=== PATIENT | female | born 1980 | race Caucasian/White ===

== ENCOUNTER → 2016-12-10 | Outpatient (CLI) | payer MEDICAID, OTHER ==
--- NOTE | 2016-12-11 05:13 | WWHP ---
DATE OF SERVICE: 12/10/2016 CHIEF COMPLAINT: The patient is here for her routine gynecologic exam. HPI: This is a 36-year-old, G2, P2 with an LMP of 11/17/2016. She is status post tubal sterilization. She states it has been about 3 years since her last pelvic exam. Her periods are regular about every 8 weeks and this has been at this frequency since age 12. She states her periods typically last about 2 days. She is without gynecologic complaints. PAST MEDICAL HISTORY: Depression. MEDICATIONS: 1. Adipex 37.5 mg daily. 2. Wellbutrin 150 mg daily. ALLERGIES: No known drug allergies. PAST SURGICAL HISTORY: section, laparoscopic tubal sterilization, cholecystectomy and umbilical hernia repair. PAST OB HISTORY: One vaginal delivery followed by section. 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 Menses are regular every 8 weeks, lasting 2 days. She has no history of STDs. SOCIAL HISTORY: She denies tobacco and drug use and typically has about 2 alcoholic drinks per year. She is single. She has been with her boyfriend for about 5 years and lives with him. 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 FAMILY HISTORY: She has 2 aunts who have breast cancer. Father has hypertension, diabetes, CVA, and coronary artery disease. REVIEW OF SYSTEMS: She has lost about 30 pounds through medical weight loss and with the use of Adipex over the past 2 months. She denies respiratory, cardiac, or GI problems. PHYSICAL EXAM: Blood pressure 120/69. Height 5 feet 2 inches. Weight 190 pounds. Temperature 96.9, pulse 75. This a well-developed, heavyset white female who is alert and oriented x3 in no acute distress. HEENT is within normal limits. NECK: Supple without mass or thyromegaly. CHEST AND LUNGS: Clear to auscultation. HEART: Regular rate and rhythm. Breasts are without mass or discharge. Axillary exam is negative for adenopathy. BACK: Negative for CVA tenderness. ABDOMEN: Soft, nontender, without palpable masses. PELVIC EXAM: Normal external genitalia. Cervix and vagina appear normal. There is no unusual discharge. The uterus is midposition, multiparous, nongravid size and nontender. There are no palpable adnexal masses or tenderness. Rectal exam is negative for mass or tenderness. EXTREMITIES: Nontender. IMPRESSION: 1. A 36-year-old female with normal gynecologic exam who is status post tubal sterilization. 2. Long history of menstrual frequency of 2 months and this is regular for her. I do not see this is a problem as long as it is regular at least every 2 months. 3. Family history of breast cancer in 2 aunts. PLAN: 1. Pap smear was performed. 2. Self breast examination was discussed. 3. Baseline screening mammogram was recommended because of her strong family history of breast cancer. A slip was given to patient for this. 4. Osteoporosis prevention was discussed. 5. She will return in one year.
== END | disposition home or self-care (01) ==
LOC: WWCWWP 15:52
PROVIDERS: ATTEND Obstetrics & Gynecology

== ENCOUNTER → 2017-01-03 | Outpatient (CLI) | payer MEDICAID, OTHER ==
--- NOTE | 2017-01-06 08:33 | MM ---
Reason for exam: screening (asymptomatic). Baseline mammogram. History: Family history of breast cancer in 2 maternal aunts at age 40. Took hormonal contraceptives for 2 years. Physical Findings: Nurse did not find any significant physical abnormalities on exam. MG 3D Screening Mammo W/Cad Bilateral CC and MLO view(s) were taken. The breast tissue is heterogeneously dense. This may lower the sensitivity of mammography. Finding: There is a 5 mm circumscribed round mass in the upper outer quadrant of the left breast and a 8 mm circumscribed round mass in the upper outer quadrant of the right breast. These results were verbally communicated with the patient and result sheet given to the patient on 01/03/17. ASSESSMENT: Incomplete: need additional imaging evaluation, BI-RAD 0 RECOMMENDATION: Ultrasound of both breasts.
--- NOTE | 2017-01-06 08:37 | USB ---
Reason for exam: additional evaluation requested from abnormal screening. History: Family history of breast cancer in 2 maternal aunts at age 40. Took hormonal contraceptives for 2 years. US Breast Workup Limited HODAN Right breast ultrasound demonstrates a 9 x 2 x 7mm oval, cystic lesion at 9 o'clock, a 6 x 6 x 9mm lobular, mixed lesion at 10 o'clock likely septated cyst and a 12 x 6 x 10mm lobular, mixed lesion at 12 o'clock likely at septated cyst. Left breast ultrasound demonstrates a 6 x 3 x 7mm oval, cystic lesion at 1 o'clock and a 10 x 3 x 13mm lobular, mixed lesion at 1 o'clock, likely septated cyst. Multiple benign axillary lymph nodes. These results were verbally communicated with the patient and result sheet given to the patient on 01/03/17. ASSESSMENT: Probably benign, BI-RAD 3 RECOMMENDATION: Ultrasound of both breasts in 6 months.
== END | disposition home or self-care (01) ==
LOC: RADMAMWWP 15:42
PROVIDERS: ATTEND Obstetrics & Gynecology
DX: Z12.31 Encounter for screening mammogram for malignant neoplasm of breast (principal); R92.8 Other abnormal and inconclusive findings on diagnostic imaging of breast
CPT/HCPCS: 77063; 76642; G0202

== ENCOUNTER → 2017-07-15 | Outpatient (CLI) | payer MEDICAID, OTHER ==
--- NOTE | 2017-07-16 09:06 | USB ---
Reason for exam: follow-up at short interval from prior study. History: Family history of breast cancer in 2 maternal aunts at age 40. Took hormonal contraceptives for 2 years. Physical Findings: Nurse Summary: 0.5cm movable, cystic clusters in the right breast at 12 o'clock and in the left breast at 11 o'clock (nurse mj). US Breast BILAT Right breast ultrasound includes all four quadrants, the retroareolar region and axilla. Finding demonstrates a 1.0 x 0.6 x 0.9cm lobular, mixed lesion at 12 o'clock, a 0.7 x 0.4 x 0.7cm oval, cystic lesion at 6 o'clock and a 0.6 x 0.3 x 0.7cm oval, cystic lesion at 9 o'clock. Left breast ultrasound includes all four quadrants, the retroareolar region and axilla. Finding demonstrates a 0.8 x 0.5 x 1.0cm lobular, mixed lesion at 2 o'clock, a 0.7 x 0.3 x 0.7cm oval, cystic lesion at 4 o'clock and a 0.6 x 0.3 x 0.5cm oval, mixed lesion at 11 o'clock. These results were verbally communicated with the patient and result sheet given to the patient on 07/16/17. ASSESSMENT: Benign, BI-RAD 2 RECOMMENDATION: Follow-up diagnostic mammogram and ultrasound of both breasts in 6 months.
== END | disposition home or self-care (01) ==
LOC: RADUSWWP 13:53
PROVIDERS: ATTEND Obstetrics & Gynecology
DX: R92.8 Other abnormal and inconclusive findings on diagnostic imaging of breast (principal)

== ENCOUNTER → 2018-01-16 | Outpatient (CLI) | payer MEDICAID ==
[2018-01-16 16:43] LABS: Basophils # (A) 0.1 k/uL (0-0.2); Basophils % (A) 1 %; Eosinophils # (A) 0.3 k/uL (0-0.7); Eosinophils % (A) 3 %; HCT 42.3 % (34.0-46.0); Lymphocytes # (A) 2.8 k/uL (1.0-4.8); Lymphocytes % (A) 30 %; MCH 27.6 pg (25.0-35.0); MCHC 33.1 g/dL (31.0-37.0); MCV 83.5 fL (80.0-100.0); Mean Platelet Volume 7.4; Monocytes # (A) 0.5 k/uL (0-1.0); Monocytes % (A) 5 %; Neutrophils # (A) 5.6 k/uL (1.3-7.7); Neutrophils % (A) 60 %; Platelet Count 348 k/uL (150-450); RBC 5.06 m/uL (3.80-5.40); RDW 12.7 % (11.5-15.5); WBC 9.3 k/uL (3.8-10.6)
[2018-01-16 17:01] LABS: ALT 38 U/L (9-52); AST 26 U/L (14-36); Albumin 4.4 g/dL (3.5-5.0); Alkaline Phosphatase 93 U/L (38-126); Anion Gap 12 mmol/L; Blood Urea Nitrogen 18 mg/dL (7-17); Carbon Dioxide 27 mmol/L (22-30); Chloride 103 mmol/L (98-107); Cholesterol 222 mg/dL (<200); Glucose 81 mg/dL (74-99); HDL Cholesterol 51 mg/dL (40-60); LDL Cholesterol,Calculated 158 mg/dL (0-99); Potassium 4.1 mmol/L (3.5-5.1); Sodium 142 mmol/L (137-145); Total Bilirubin 0.8 mg/dL (0.2-1.3); Total Protein 7.7 g/dL (6.3-8.2); Triglycerides 67 mg/dL (<150)
[2018-01-17 00:26] LABS: Thyroid Peroxidase Antibodies 41.6 U/mL (0.0-60.0); Vitamin D 25 Hydroxy 19.1 ng/mL (30.0-100.0)
[2018-01-17 01:05] LABS: Folate, Serum >24.0 ng/mL
== END | disposition home or self-care (01) ==
LOC: LABWHC1 16:12
PROVIDERS: ATTEND Family Medicine
DX: Z00.01 Encounter for general adult medical examination with abnormal findings (principal); E66.9 Obesity, unspecified; E55.9 Vitamin D deficiency, unspecified; R61 Generalized hyperhidrosis; Z68.41 Body mass index [BMI] 40.0-44.9, adult
CPT/HCPCS: 36415; 80053; 80061; 82306; 82607; 82746; 84443; 85025; 86376; 86800

== ENCOUNTER → 2018-01-27 | Outpatient (CLI) | payer MEDICAID ==
--- NOTE | 2018-01-28 08:36 | MM ---
Reason for exam: follow-up at short interval from prior study. Last mammogram was performed 1 year and 1 month ago. History: Family history of breast cancer in 2 maternal aunts at age 40. Took hormonal contraceptives for 2 years. Physical Findings: Nurse Summary: 1cm nodule in the right breast at 12 o'clock and in the left breast at 11 o'clock (nurse mj). MG 3D Diag Mammo W/Cad HODAN Bilateral CC and MLO view(s) were taken. Prior study comparison: January 03, 2017, bilateral MG 3d screening mammo w/cad. The breast tissue is heterogeneously dense. This may lower the sensitivity of mammography. Nodularity bilaterally increased and decreased in size. There is no discrete abnormality. Prominent bilateral axillary lymph nodes redemonstrated. These results were verbally communicated with the patient and result sheet given to the patient on 01/27/18. ASSESSMENT: Incomplete: need additional imaging evaluation, BI-RAD 0 RECOMMENDATION: Ultrasound of both breasts. (palpable and changing nodularity)
--- NOTE | 2018-01-28 08:42 | USB ---
Reason for exam: additional evaluation requested from abnormal screening. History: Family history of breast cancer in 2 maternal aunts at age 40. Took hormonal contraceptives for 2 years. US Breast BILAT Right breast ultrasound includes all four quadrants, the retroareolar region and axilla. Finding demonstrates a 1.2 x 0.5 x 1.0cm lobular, mixed, stable, vascular lesion at 12 o'clock, a 0.8 x 0.3 x 0.6cm mixed lesion at 3 o'clock, a 0.5 x 0.3 x 0.6cm cystic lesion at 6 o'clock and a 1.3 x 0.4 x 0.7cm mixed lesion at 9 o'clock, septated cyst. Left breast ultrasound includes all four quadrants, the retroareolar region and axilla. Finding demonstrates a 0.8 x 0.4 x 0.9cm lobular, mixed lesion at 2 o'clock, septated cyst, a 0.8 x 0.4 x 0.8cm mixed lesion at 4 o'clock and a 0.5 x 0.2 x 0.4cm mixed lesion too small to characterize at 11 o'clock. Bilateral fibrocystic change. These results were verbally communicated with the patient and result sheet given to the patient on 01/27/18. ASSESSMENT: Benign, BI-RAD 2 RECOMMENDATION: Follow-up diagnostic mammogram of both breasts in 1 year.
== END | disposition home or self-care (01) ==
LOC: RADMAMWWP 14:11
PROVIDERS: ATTEND Family Medicine
DX: N63.10 Unspecified lump in the right breast, unspecified quadrant (principal); N63.20 Unspecified lump in the left breast, unspecified quadrant; R92.8 Other abnormal and inconclusive findings on diagnostic imaging of breast
CPT/HCPCS: 77066; 76641; G0279

== ENCOUNTER → 2019-03-30 | Outpatient (CLI) | payer MEDICAID, OTHER ==
--- NOTE | 2019-03-31 07:48 | MM ---
Reason for exam: additional evaluation requested from prior study. Last mammogram was performed 1 year and 2 months ago. History: Family history of breast cancer in 2 maternal aunts at age 40. Took hormonal contraceptives for 2 years. Physical Findings: Nurse did not find any significant physical abnormalities on exam. MG 3D Diag Mammo W/Cad HODAN Bilateral CC and MLO view(s) were taken. Prior study comparison: January 27, 2018, bilateral MG 3d diag mammo w/cad HODAN. January 03, 2017, bilateral MG 3d screening mammo w/cad. The breast tissue is heterogeneously dense. This may lower the sensitivity of mammography. There is chronic nodularity bilaterally. Bilateral, greater in the left breast, prominent lymph node's axilla not significantly changed from 01/03/17. These results were verbally communicated with the patient and result sheet given to the patient on 03/30/19. ASSESSMENT: Benign, BI-RAD 2 RECOMMENDATION: Routine screening mammogram of both breasts in 1 year.
== END | disposition home or self-care (01) ==
LOC: RADMAMWWP 15:28
PROVIDERS: ATTEND Family Medicine
DX: R92.8 Other abnormal and inconclusive findings on diagnostic imaging of breast (principal)
CPT/HCPCS: 77062; 77066

== ENCOUNTER → 2020-06-27 | Outpatient (CLI) | payer MEDICAID, OTHER ==
[2020-06-27 14:14] VITALS: BP 116/80; PULSE 65; RESP 18; TEMP 98.1
--- NOTE | 2020-06-27 14:56 | P.HPOB ---
History of Present Illness H&P Date: 06/27/20 Chief Complaint: The patient is here for her routine gynecologic exam and ma mmogram. This is a 40-year-old with an LMP of 06/23/2020. The patient is status post tubal sterilization. She states her menses have been slightly more irregular about every 4-6 months. They have gotten heavier during the first 2 days when she has to change her protection up to every 2 hours. She is otherwise without complaints. Review of Systems Weight has been stable over the past 3 years. She denies respiratory, cardiac, or GI problems. 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 History of Any Multi-Drug Resistant Organisms: None Reported Past Surgical History: Section, Cholecystectomy, Hernia Repair, Tubal Ligation Additional Past Surgical History / Comment(s): Umbilical hernia repair. One section after previous vaginal delivery. Past Psychological History: Depression Smoking Status: Never smoker Past Alcohol Use History: Rare (3 per year) Past Drug Use History: None Reported Additional History: She is single and has been with her boyfriend since 2011 and lives with him. She works at [employer] in the [employer] department. - Past Family History Father Family Medical History: Coronary Artery Disease (CAD), CVA/TIA, Diabetes Mellitus, Hypertension Aunts Family Medical History: Cancer Additional Family Medical History / Comment(s): 2 aunts had breast cancer. Medications and Allergies Home Medications Medication Instructions Recorded Confirmed Type buPROPion [Wellbutrin] 300 mg PO QAM 06/27/20 06/27/20 History Allergies Allergy/AdvReac Type Severity Reaction Status Date / Time No Known Allergies Allergy Unverified 06/27/20 14:08 Exam Vital Signs Temp Pulse Resp BP Pulse Ox 06/27/20 14:09 98.1 F 65 18 116/80 98 Intake and Output 06/26/20 06/27/20 06/27/20 22:59 06:59 14:59 Other: Weight 85.275 kg Height 5 feet 3 inches, weight 188 pounds, BMI 33.3. This is a well-developed well-nourished white female who is alert and oriented times 3 in no acute distress. HEENT: Within normal limits. NECK: Supple without mass or thyromegaly. CHEST AND LUNGS: Clear to auscultation. HEART: Regular rate and rhythm. BREASTS: Are without mass or discharge. AXILLARY EXAM: Negative for adenopathy. BACK: Negative for CVA tenderness. ABDOMEN: Soft, nontender, without palpable masses. PELVIC EXAM: Normal external genitalia. Cervix and vagina appear normal. There is no unusual discharge. There is no evidence of prolapse. The uterus is anterior, 8-10 weeks size and nontender. There are no palpable adnexal masses or tenderness. RECTAL EXAM: negative for mass or tenderness and is negative for occult blood. EXTREMITIES: Nontender. IMPRESSION: 1. 40-year-old female who is status post tubal sterilization with mild menorrhagia and mildly enlarged uterus. Differential diagnosis will include uterine fibroids and menorrhagia not related to fibroids. PLAN: 1. Pap smear was performed. 2. Self breast awareness was discussed with the patient. 3. Screening mammogram was done today. 4. Trial of meclofenamate sodium 100 mg by mouth 3 times a day when necessary for heavy menstrual flow up to 6 days per cycle. She will keep a menstrual calendar. The electronic prescription will be sent to [facility] pharmacy. 5. If she does not notice much improvement with her menorrhagia, she was instructed to call in approximately 3 months. If this is the case, we will consider pelvic ultrasound and possible referral for endometrial ablation. 6. She was advised to return in one year for her annual well woman exam and as needed.
--- NOTE | 2020-06-29 14:13 | MM ---
Reason for exam: screening (asymptomatic). Last mammogram was performed 1 year and 3 months ago. History: Family history of breast cancer in 2 maternal aunts at age 40. Took hormonal contraceptives for 2 years. Physical Findings: A clinical breast exam by your physician is recommended on an annual basis and results should be correlated with mammographic findings. MG 3D Screening Mammo W/Cad Bilateral CC and MLO view(s) were taken. Prior study comparison: March 30, 2019, bilateral MG 3d diag mammo w/cad HODAN. January 27, 2018, bilateral MG 3d diag mammo w/cad HODAN. The breast tissue is heterogeneously dense. This may lower the sensitivity of mammography. There is chronic nodularity bilaterally. No significant changes when compared with prior studies. ASSESSMENT: Benign, BI-RAD 2 RECOMMENDATION: Routine screening mammogram of both breasts in 1 year.
== END | disposition home or self-care (01) ==
LOC: WWCWWP 13:50
PROVIDERS: ATTEND Obstetrics & Gynecology
DX: Z12.31 Encounter for screening mammogram for malignant neoplasm of breast (principal)
CPT/HCPCS: 77063; 77067

== ENCOUNTER → 2021-02-27 | Outpatient (CLI) | payer MEDICAID, OTHER ==
[2021-02-27 16:09] VITALS: BP 116/81; PULSE 73; RESP 16; TEMP 98.3
--- NOTE | 2021-02-27 16:50 | P.PN ---
Progress Note - Text Progress Note Date: 02/27/21 Chief Complaint: Menstrually related pelvic fullness and heavy flow HPI: This is a 40-year-old with an LMP of 02/02/2021. The patient was seen on 06/27/2020 for her well woman examination and was treated for heavy menstrual flow with meclofenamate sodium. She states she has been starting the meclofenamate about 4-5 days prior to menstrual flow because of pelvic heaviness neck can also lead to feelings like she needs to void. Typically at those times she would Fort small amounts of urine. Since the meclofenamate is to only be used for 6 days per cycle, she is typically stopping the meclofenamate soon after menstrual flow starts. She has not noticed much difference in her heavy menstrual flow. She is status post tubal ligation. ROS: Some urinary urgency prior to starting a menstrual period, but does not feel like a urinary tract infection. Review of systems is otherwise unremarkable. PE: Blood pressure: 116/81, Height: 5 feet 4 inches, Weight: 200 pounds, Temperature: 98.3, Pulse: 13. Pulse oximeter 99%. This is a well developed, well nourished, white female who is alert and orientedx3, in no acute distress. Impression: 1. 40-year-old female with menorrhagia 2. Menstrually related pelvic heaviness for approximately 4 or 5 days prior to menstrual flow. 3. History of uterine enlargement with the uterus measuring approximately 10 weeks size. Possible uterine fibroids. Plan: 1. We have discussed how she has used the meclofenamate differently than what I had intended. I wanted her to start the meclofenamate around the time of the start of her menstrual flow. Since she was using it for several days before the menstrual flow, she may not have been using it during the heavier part of the menstrual flow as intended. The electronic prescription for meclofenamate 100mg will be sent to [facility] pharmacy. She will she will take this 3 times a day whe n necessary for heavy menstrual flow up to 6 days per cycle and will start this around the time of the onset of menstrual flow. If she needs something for pelvic discomfort prior to the menstrual flow, she was instructed to use [id number] ibuprofen or Aleve as directed. Once she starts the meclofenamate sodium, she was instructed to discontinue the other NSAID type of medication. 2. I recommended a pelvic ultrasound to evaluate the uterus for uterine fibroids. 3. If she is not noticing much improvement with the meclofenamate sodium, we will consider other options. We have discussed options including endometrial ablation and hysterectomy. 4. She will return in approximately 4 months at the time of her annual well woman examination. At that time we will decide whether surgical options would be appropriate. Time spent with the patient: 20 minutes
== END ==
LOC: WWCWWP 15:46
PROVIDERS: ATTEND Obstetrics & Gynecology
DX: N92.0 Excessive and frequent menstruation with regular cycle (principal); Z87.42 Personal history of other diseases of the female genital tract

== ENCOUNTER → 2021-03-29 | Outpatient (CLI) | payer MEDICAID, OTHER ==
--- NOTE | 2021-03-29 14:07 | US ---
EXAMINATION TYPE: US pelvic complete DATE OF EXAM: 03/29/2021 COMPARISON: NONE CLINICAL HISTORY: N92.0 N85.2,R10.2 PELVIC PAIN. TECHNIQUE: . Transabdominal sonographic images of the pelvis were acquired. Transvaginal sonographi c images were medically necessary to better assess the following anatomy: Date of LMP: not given EXAM MEASUREMENTS: Uterus: 12.7 x 8.5 x 7.2 cm Endometrial Stripe: 1.0 cm Right Ovary: 2.6 x 1.5 x 2.0 cm Left Ovary: obscured by overlying bowel gas 1. Uterus: Anteverted, fibroid uterus largest measuring 7.8 x 7.8 x 6.6cm 2. Endometrium: not positively identified due to large fibroid 3. Right Ovary: wnl 4. Left Ovary: not visualized, obscured by overlying bowel gas Spectral, color and waveform doppler imaging shows good arterial and venous flow within the ovaries ; there is no evidence for ovarian torsion. 5. Bilateral Adnexa: wnl 6. Posterior cul-de-sac: wnl IMPRESSION: 1. Uterine masses most likely represent leiomyomata. 2. Left ovary not seen. 3. Endometrium not well visualized.
== END | disposition home or self-care (01) ==
LOC: RADUSWWP 13:05
PROVIDERS: ATTEND Obstetrics & Gynecology
DX: N92.0 Excessive and frequent menstruation with regular cycle (principal); R10.2 Pelvic and perineal pain; N85.2 Hypertrophy of uterus
CPT/HCPCS: 76856

== ENCOUNTER → 2021-08-28 | Outpatient (CLI) | payer MEDICAID, OTHER ==
--- NOTE | 2021-08-28 16:44 | P.HPOB ---
History of Present Illness H&P Date: 08/28/21 Chief Complaint: The patient is here for her routine gynecologic exam and ma mmogram. This is a 41-year-old with an LMP of 08/21/2021. The patient is status post tubal sterilization. Menstrual periods are regular every month lasting about 5 days with 2 days of very heavy flow. During the heavy days, she has to change super tampons about every 30 minutes. She has tried meclofenamate sodium over the past year and she states it does help somewhat with her heavy flow, but she has stomach problems and discomfort when she takes the medication. She try taking the medication with food without much improvement. Pelvic ultrasound done on 03/29/2021 showed a fibroid uterus with the largest fibroid measuring 7.8 cm. She thinks her abdomen has gotten slightly larger she attributed this to weight gain. Her previous Pap smear on 06/27/2020 showed ASCUS with negative high-risk HPV testing. Review of Systems The patient has gained 2 pounds over the last year. She denies respiratory, cardiac, or G.I. problems. 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 History of Any Multi-Drug Resistant Organisms: None Reported Past Surgical History: Section, Cholecystectomy, Hernia Repair, Tubal Ligation Additional Past Surgical History / Comment(s): Umbilical hernia repair. One section after previous vaginal delivery. Past Psychological History: Depression Smoking Status: Never smoker Past Alcohol Use History: Rare (3 per year) Past Drug Use History: None Reported Additional History: She is a single and has been with her boyfriend since 2011 and lives with him. She works at [employer] in the [employer] department. - Past Family History Father Family Medical History: Coronary Artery Disease (CAD), CVA/TIA, Diabetes Mellitus, Hypertension Aunts Family Medical History: Cancer Additional Family Medical History / Comment(s): 2 aunts had breast cancer. maternal grandmother Family Medical History: Cancer Additional Family Medical History / Comment(s): Ovarian cancer. There is no other history of ovarian cancer in her family. Medications and Allergies Home Medications Medication Instructions Recorded Confirmed Type buPROPion [Wellbutrin] 300 mg PO QAM 06/27/20 08/28/21 History Meclofenamate Sodium 100 mg PO TID PRN #30 capsule 02/27/21 08/28/21 Rx Allergies Allergy/AdvReac Type Severity Reaction Status Date / Time No Known Allergies Allergy Unverified 08/28/21 15:22 Exam Blood pressure 111/76, height 5 feet 3 inches, weight 190 pounds, temp 98.1, pulse 66, pulse oximeter 100%. BMI 34. This is a well-developed well-nourished white female who is alert and oriented times 3 in no acute distress. HEENT: Within normal limits. NECK: Supple without mass or thyromegaly. CHEST AND LUNGS: Clear to auscultation. HEART: Regular rate and rhythm. BREASTS: Are without mass or discharge. AXILLARY EXAM: Negative for adenopathy. BACK: Negative for CVA tenderness. ABDOMEN: Soft, nontender, without palpable masses. PELVIC EXAM: Normal external genitalia. Cervix and vagina appear normal. The cervix appears multiparous without lesions. There is no unusual discharge. There is no evidence of prolapse. The uterus is midposition, firm, approximately 12 week size and nontender. There are no palpable adnexal masses or tenderness. RECTAL EXAM: negative for mass or tenderness and is negative for occult blood. EXTREMITIES: Nontender. IMPRESSION: 1. 41-year-old female with a 12 week size fibroid uterus. The uterus seems to be larger than her exam 1 year ago. 2. Menorrhagia probably secondary to the fibroid uterus. GI intolerance to meclofenamate sodium. 3. Previous tubal sterilization. 4. Previous ASCUS Pap smear with negative high-risk HPV testing on 06/27/2020. PLAN: 1. Pap smear was deferred since she had an ASCUS Pap smear with negative high- risk HPV testing on 06/27/2020. The plan was to repeat this again in 1-2 years from now. 2. Self breast awareness was discussed with the patient. We have also discusse d symptoms associated with inflammatory breast cancer. 3. Screening mammogram will be done today. 4. We have had a long discussion regarding options for her heavy menstrual periods. Medical treatment options would include oral contraception, Mirena IUD, Lysteda,and Oriahnn. We have discussed pros and cons of each of these types of medications. We have also discussed surgical approaches including myomectomy and hysterectomy. We've discussed different approaches of hysterectomy including vaginal hysterectomy, laparoscopic assisted hysterectomy and abdominal hysterectomy. We have also discussed possible option of removing ovaries at the time of the hysterectomy or leaving them in. After our long discussion, she would like to look into treatment with hysterectomy. She will be referred to Dr. Steele who she states delivered one of her babies many years ago. 5. The [employer] FAQ handout on hysterectomy was given to the patient. She was p reviously given information on uterine fibroids. 6. She was advised to return in one year for her annual well woman exam.
--- NOTE | 2021-08-30 13:59 | MM ---
Reason for exam: screening (asymptomatic). Last mammogram was performed 1 year and 2 months ago. History: Family history of breast cancer in 2 maternal aunts at age 40. Took hormonal contraceptives for 2 years. Physical Findings: A clinical breast exam by your physician is recommended on an annual basis and results should be correlated with mammographic findings. MG 3D Screening Mammo W/Cad Bilateral CC and MLO view(s) were taken. Prior study comparison: June 27, 2020, bilateral MG 3d screening mammo w/cad. March 30, 2019, bilateral MG 3d diag mammo w/cad HODAN. The breast tissue is heterogeneously dense. This may lower the sensitivity of mammography. There is chronic nodularity in the left breast. No significant changes when compared with prior studies. ASSESSMENT: Benign, BI-RAD 2 RECOMMENDATION: Routine screening mammogram of both breasts in 1 year.
== END ==
LOC: WWCWWP 15:14
PROVIDERS: ATTEND Obstetrics & Gynecology
DX: D25.9 Leiomyoma of uterus, unspecified (principal); N92.0 Excessive and frequent menstruation with regular cycle; F32.9 Major depressive disorder, single episode, unspecified; Z98.51 Tubal ligation status; Z79.899 Other long term (current) drug therapy
CPT/HCPCS: 77063; 77067

== ENCOUNTER → 2021-09-21 | Outpatient (CLI) | payer MEDICAID, OTHER ==
[2021-09-21 19:14] LABS: Basophils # (A) 0.1 k/uL (0-0.2); Basophils % (A) 1 %; Eosinophils # (A) 0.2 k/uL (0-0.7); Eosinophils % (A) 2 %; HCT 44.2 % (34.0-46.0); Lymphocytes # (A) 2.6 k/uL (1.0-4.8); Lymphocytes % (A) 25 %; MCH 28.3 pg (25.0-35.0); MCHC 31.7 g/dL (31.0-37.0); MCV 89.2 fL (80.0-100.0); Mean Platelet Volume 8.8; Monocytes # (A) 0.6 k/uL (0-1.0); Monocytes % (A) 6 %; Neutrophils # (A) 6.9 k/uL (1.3-7.7); Neutrophils % (A) 66 %; Platelet Count 333 k/uL (150-450); RBC 4.96 m/uL (3.80-5.40); RDW 13.7 % (11.5-15.5); WBC 10.5 k/uL (3.8-10.6)
== END | disposition home or self-care (01) ==
LOC: LABPAT 15:54
PROVIDERS: ATTEND Obstetrics & Gynecology
DX: Z01.812 Encounter for preprocedural laboratory examination (principal); D25.9 Leiomyoma of uterus, unspecified
CPT/HCPCS: 80051; 82565; 82947; 84520; 85025; 87086

== ENCOUNTER 2021-10-01 09:05 | Inpatient (IN) | payer MEDICAID, OTHER ==
[2021-09-27 10:24] VITALS: BMI 34.7
[~2021-10-01 09:05] MED LIST: DEXAMETHASONE SOD PHOSPHATE 4 MG/ML 1 ML VIAL IV ONE; MIDAZOLAM 2 MG/2 ML VIAL IV PRN; ONDANSETRON 4 MG/2 ML VIAL IVP ONE
[2021-10-01] MEDS: LACTATED RINGERS 1,000 ML IV SCH (09:56)
[2021-10-01] MEDS ORDERED: SCOPOLAMINE 1.5MG/72HR PATCH TRANSDERM ONE (10:01)
[2021-10-01] MEDS ORDERED: MIDAZOLAM 2 MG/2 ML VIAL IV ONE (10:16)
[2021-10-01] MEDS ORDERED: fentaNYL (PF) 50 MCG/ML 5 ML AMP IV ONE (10:16)
--- NOTE | 2021-10-01 10:31 | P.ANPRN ---
Procedure Note - Anesthesia - Epidural/Spinal Spinal Time Out Performed: Yes Date of Procedure: 10/01/21 Procedure Start Time: :15 Procedure Stop Time: Location of Patient: PreOp Indication: Acute Post-Operative Pain, Requested by Surgeon (dayana) Sedation Type: Sedate with meaningful contact maintained Preparation: Sterile Dressing Number of Attempts: 1 Position: Supine Catheter: None Needle Guage: 25 Narrative: sterile protocol. L4-5 interspace. Fentanyl 25mcg and Duramorph 300mcg. Blood Aspirated: No Pain Paresthesia on Injection Noted: No Events: Uneventful and Well Tolerated
[2021-10-01] MEDS ORDERED: PHENYLEPHRINE-0.9% NACL SYG 1,000 MCG/10 ML SYRINGE ONE (11:01)
[2021-10-01] MEDS ORDERED: SUCCINYLCHOLINE CHLORIDE 100 MG/5 ML SYR IV ONE (11:01)
[2021-10-01] MEDS ORDERED: MIDAZOLAM 2 MG/2 ML VIAL ONE (11:01)
[2021-10-01] MEDS ORDERED: GLYCOPYRROLATE 0.2 MG/ML 2 ML VIAL ONE (11:01)
[2021-10-01] MEDS ORDERED: NEOSTIGMINE 1 MG/ML 10 ML VIAL ONE (11:01)
[2021-10-01] MEDS ORDERED: LIDOCAINE 1% INJ 10MG/ML (20 ML MDV) ONE (11:01)
[2021-10-01] MEDS ORDERED: PROPOFOL 10 MG/ML 20 ML VIAL IV ONE (11:01)
[2021-10-01] MEDS ORDERED: MORPHINE SULFATE (PF) 0.3 MG/0.3 ML SYR ONE (11:01)
[2021-10-01] MEDS ORDERED: fentaNYL (PF) 50 MCG/ML 2 ML AMP ONE (11:01)
[2021-10-01] MEDS ORDERED: ROCURONIUM 10 MG/ML (5 ML VIAL) IV ONE (11:01)
[2021-10-01] MEDS ORDERED: LACTATED RINGERS 1,000 ML IV ONE ×2 (12:05→12:43)
[2021-10-01] MEDS ORDERED: ZOLPIDEM 5 MG TAB PO PRN (12:47)
[2021-10-01] MEDS ORDERED: ONDANSETRON 4 MG/2 ML VIAL IVP PRN (12:47)
[2021-10-01] MEDS ORDERED: SIMETHICONE 80 MG CHEWABLE PO PRN (12:47)
[2021-10-01] MEDS ORDERED: METOCLOPRAMIDE 5 MG/ML 2 ML VIAL IVP PRN (12:47)
[2021-10-01] MEDS ORDERED: KETOROLAC 30 MG/ML 1 ML VIAL IVP PRN (12:47)
--- NOTE | 2021-10-01 12:47 | P.OP ---
Date of Procedure: 10/01/21 Preoperative Diagnosis: Enlarged fibroid uterus, menorrhagia Postoperative Diagnosis: Same, normal-appearing ovaries bilaterally Procedure(s) Performed: Total abdominal hysterectomy Anesthesia: RIC Surgeon: Kady Steele Chief Order Dispatcher #1: Abdi Frausto Estimated Blood Loss (ml): 450 IV fluids (ml): 1,600 Urine output (ml): 150 Pathology: other Disposition: PACU Description of Procedure: Patient is brought to the operating suite after spinal with Duramorph is placed in the preoperative area. She's placed in the dorsal supine position after prepping of the cervix, vagina, abdomen are all performed. Velasco catheter placed to direct drainage. Urine hCG negative. Cover test negative. The appropriate timeout is performed to assure proper patient and procedural identification. Gen. anesthetic has been given. A low transverse skin incision is made through the prior section scar. This is taken down through the subcutaneous tissue which is approximately 8 cm deep. Fascia is isolated, scored, extended bilaterally with curved Ruggiero scissors. Peritoneum is next identified and incised, there is no bowel or bladder involvement. The O'Jesus-O'Mooney retractors placed and at all times the bladder is Well from the operative field via bladder blade. A 3 yard sponge is placed to keep the bowel protected superiorly. The uterus is quite large, with the predominant fibroid filling the posterior cul-de-sac, at least 9-10 cm in diameter. The round ligaments are identified, clamped cut and suture ligated. The infundibulopelvic ligaments are identified, clamped cut and suture ligated through the clear space. Ovaries and tubes are retained in situ. Uterine vasculature is identified, clamped cut and suture ligated. Exposure was quite difficult secondary to the size of the uterus. Bladder flap is created with Metzenbaum scissors and the anterior most fibroid is shelled out to allow bladder mobilization. Cardinal ligaments are identified, clamped cut and suture ligated. Uterosacral ligaments are again identified, clamped cut and suture ligated. Odette clamps are used across the remaining vagina and the specimen is removed and sent to pathology for evaluation. 0 Vicryl sutures used on these pedicles as well, they are tied with Odette clamps, flashed, and retied for excellent hemostasis. At now the pelvis is irrigated, all pedicles are clean and dry. Velasco is noted to be draining clear urine. The causes of the extensive dissection especially in the posterior cul-de-sac surgical's no is placed to assure hemostasis. Peritoneum is allowed to close by secondary intention. Fascia is closed in a running stitch of 0 Vicryl with over ligation in the midline. Subcutaneous tissue is irrigated, clean and dry, reapproximated with 3-0 Vicryl in a running fashion. 4-0 undyed Monocryl is used for final skin closure. Steri-Strips and Mastisol are applied to the wound. Again Velasco is noted to be draining clear urine, 1 50 mL's. Fluid replacement 1600 mL's. Total estimated blood loss 450 mL's. Patient is brought back to recovery room in very good condition with stable vital signs including a pulse of 59, 100% O2 saturation, blood pressure 102/48.
[2021-10-01] MEDS ORDERED: diphenhydrAMINE 50 MG/ML 1 ML VIAL IVP ONE (13:07)
[2021-10-01] MEDS: diphenhydrAMINE 50 MG/ML 1 ML VIAL IVP PRN ×2 (13:22→23:32)
[2021-10-01] MEDS: HYDROmorphone 0.5 MG/0.5 ML SYRINGE IVP PRN ×2 (13:24→13:28)
[2021-10-01] MEDS ORDERED: ONDANSETRON 4 MG/2 ML VIAL IVP ONE (14:00)
[2021-10-01 14:39] VITALS: RESP 16
[2021-10-02 07:53] LABS: Basophils # (A) 0.1 k/uL (0-0.2); Basophils % (A) 0 %; Eosinophils % (A) 0 %; HCT 34.7 % (34.0-46.0); Lymphocytes # (A) 2.3 k/uL (1.0-4.8); Lymphocytes % (A) 14 %; MCH 28.4 pg (25.0-35.0); MCHC 31.8 g/dL (31.0-37.0); MCV 89.4 fL (80.0-100.0); Monocytes # (A) 0.9 k/uL (0-1.0); Monocytes % (A) 6 %; Neutrophils # (A) 13.4 k/uL (1.3-7.7); Neutrophils % (A) 79 %; Platelet Count 296 k/uL (150-450); RBC 3.89 m/uL (3.80-5.40); RDW 13.3 % (11.5-15.5)
[2021-10-02] MEDS: IBUPROFEN 600 MG TAB PO PRN ×2 (07:56→15:27)
--- NOTE | 2021-10-02 08:04 | P.DS ---
Providers Date of admission: 10/01/21 09:05 Expected date of discharge: 10/02/21 Attending physician: Kady Steele Primary care physician: Anil Beltrán [facility] Course: This is a 41-year-old female who presented with an increasingly symptomatic fibroid uterus. Largest fibroid sonographically measured 9 cm, on the posterior uterine surface. After consultation, she has elected to proceed with total abdominal hysterectomy. She is not a candidate for vaginal surgery. She has had one previous section. Please see dictated history and physical for details. Yesterday patient underwent a total abdominal hysterectomy. Steri-Strips and Mastisol were applied to the wound. Ovaries appeared normal and were left in situ per our preoperative discussion. Please see dictated operative note for details. This morning the patient is doing well. Vital signs are stable and she is afebrile. Pain is well-controlled. Incision is clean and dry, intact, Steri- Strips applied. Active bowel sounds. She is passing flatus. She is tolerating regular food. Patient is judged to be in good condition for discharge home. She will go home after dinner tonight. I have reminded her no intercourse, tampons or douching. She will use kevv-orx-bhxyjli Aleve or ibuprofen as needed for pain. She will call with any fevers shakes or chills, foul smelling or copious lochia, with the passage of large blood clots, with any pain not a lleviated by vvbz-yaz-myhnytl products, or indeed with any concerns. Assessment: Doing Well first postoperative day Patient Condition at Discharge: Good Plan - Discharge Summary Discharge Rx Participant: No New Discharge Prescriptions: No Action buPROPion [Wellbutrin] 450 mg PO QAM Mv-Min/Vit C/Glut/Lysine/Hc124 [Airborne Tablet Chewable] 1 tablet PO DAILY Discharge Medication List buPROPion [Wellbutrin] 450 mg PO QAM 06/27/20 [History] Mv-Min/Vit C/Glut/Lysine/Hc124 [Airborne Tablet Chewable] 1 tablet PO DAILY 09/27/21 [History] Follow up Appointment(s)/Referral(s): Kady Steele MD [STAFF PHYSICIAN] - 2 Weeks Patient Instructions/Handouts: *Surgery [facility] - Scopalamine Patch Instructions
[2021-10-02] MEDS: LACTATED RINGERS 1,000 ML IV SCH (09:28)
--- NOTE | 2021-10-02 10:50 | P.PN ---
Progress Note - Text Progress Note Date: 10/02/21 Postoperative day 1 status post total abdominal hysterectomy under general endo tracheal anesthesia, and intrathecal morphine given for postoperative analgesia, patient doing well, there is no anesthesia related complications, Patient had no headache, vital signs stable , Assessment and plan= postop day 1 status post , doing well there is no anesthesia related complication.
[2021-10-02] MEDS ORDERED: ACETAMINOPHEN TAB 500 MG TAB PO PRN (12:18)
[2021-10-02 16:18] VITALS: BP 97/61; PULSE 59; TEMP 98.1
== END 2021-10-02 17:00 | disposition home or self-care (01) | DRG 743 ==
LOC: 2ORMAIN 09:05 → 4FBP 13:57
PROVIDERS: ADMIT Obstetrics & Gynecology; ATTEND Obstetrics & Gynecology
PROC: 0UT90ZZ Resection of Uterus, Open Approach (ICD-10-PCS; principal; 2021-10-01 10:45)
PROC: 0UTC0ZZ Resection of Cervix, Open Approach (ICD-10-PCS; principal; 2021-10-01 10:45)
DX: D25.2 Subserosal leiomyoma of uterus (principal); D25.1 Intramural leiomyoma of uterus; F32.A Depression, unspecified; Z20.822 Contact with and (suspected) exposure to COVID-19; Z90.710 Acquired absence of both cervix and uterus; Z90.49 Acquired absence of other specified parts of digestive tract; Z98.51 Tubal ligation status
CPT/HCPCS: 36415; 81025; 85025; 86850; 86900; 86901; 87635; 88307

== ENCOUNTER → 2022-09-10 | Outpatient (CLI) | payer MEDICAID, OTHER ==
--- NOTE | 2022-09-11 18:12 | MM ---
Reason for Exam: Screening (asymptomatic). Last screening mammogram was performed 12 month(s) ago. Patient History: Menarche at age 12. First Full-Term at age 17. Hysterectomy at age 41. Postmenopausal. Patient used Hormonal Contraceptives for 2 years. Maternal aunt had breast cancer, age 40. Maternal aunt had breast cancer, age 40. Maternal grandmother had ovarian cancer. Risk Values: Gricel 5 year model risk: 0.5%. NCI Lifetime model risk: 7.1%. Prior Study Comparison: 03/30/2019 Bilateral Diagnostic Mammogram, [facility]. 06/27/2020 Bilateral Screening Mammogram, [facility]. 08/28/2021 Bilateral Screening Mammogram, [facility]. Tissue Density: The breast tissue is heterogeneously dense. This may lower the sensitivity of mammography. Findings: Analyzed By CAD. Chronic nodularity lateral left breast. There is no suspicious group of microcalcifications or new suspicious mass in either breast. Overall Assessment: Benign, BI-RAD 2 Management: Screening Mammogram of both breasts in 1 year. 1. Patient should continue monthly self breast exams. 2. A clinical breast exam by your physician is recommended on an annual basis. 3. This exam should not preclude additional follow-up of suspicious palpable abnormalities. Electronically signed and approved by: Leif Viramontes M.D. Radiologist
== END | disposition home or self-care (01) ==
LOC: RADMAMWWP 16:38
PROVIDERS: ATTEND Family Medicine
DX: Z12.31 Encounter for screening mammogram for malignant neoplasm of breast (principal); Z78.0 Asymptomatic menopausal state; Z80.3 Family history of malignant neoplasm of breast; Z80.41 Family history of malignant neoplasm of ovary
CPT/HCPCS: 77063; 77067

== ENCOUNTER → 2023-12-12 | Outpatient (CLI) | payer BC ==
--- NOTE | 2023-12-12 13:04 | MM ---
Reason for Exam: Screening (asymptomatic). Last mammogram was performed 1 year(s) and 4 month(s) ago. Patient History: Menarche at age 12. First Full-Term at age 17. Hysterectomy at age 41. Postmenopausal. Patient used Hormonal Contraceptives for 2 years. Maternal aunt had breast cancer, age 40. Maternal aunt had breast cancer, age 40. Maternal grandmother had ovarian cancer. Risk Values: Gricel 5 year model risk: 0.6%. NCI Lifetime model risk: 7.1%. Prior Study Comparison: 01/03/2017 Bilateral Screening Mammogram, [facility]. 01/27/2018 Bilateral Diagnostic Mammogram, [facility]. 03/30/2019 Bilateral Diagnostic Mammogram, [facility]. 06/27/2020 Bilateral Screening Mammogram, [facility]. 08/28/2021 Bilateral Screening Mammogram, [facility]. 09/10/2022 Bilateral MG 3D screening mammo w/cad, [facility]. Tissue Density: There are scattered fibroglandular densities. Findings: Analyzed By CAD. The pattern is symmetrical. No significant interval change is noted. No suspicious groups of microcalcifications, spiculated or lobular masses, architectural distortion or other secondary signs of malignancy are mammographically apparent. Overall Assessment: Benign, BI-RAD 2 Management: Screening Mammogram of both breasts in 1 year. A negative mammogram report should not preclude additional follow up of suspicious palpable abnormalities. Patient should continue monthly self breast exam. A clinical breast exam by your physician is recommended on an annual basis and results should be correlated with mammographic findings. Electronically signed and approved by: Nain Worthy D.O. Radiologis
== END | disposition home or self-care (01) ==
LOC: RADMAMWWP 12:08
PROVIDERS: ATTEND Family Medicine
DX: Z12.31 Encounter for screening mammogram for malignant neoplasm of breast (principal); Z78.0 Asymptomatic menopausal state; Z80.3 Family history of malignant neoplasm of breast
CPT/HCPCS: 77063; 77067

== ENCOUNTER → 2024-12-06 | Outpatient (CLI) | payer BC ==
[2024-12-06 15:04] LABS: Basophils # (A) 0.07 X 10*3/uL (0.00-0.10); Basophils % (A) 0.8 %; Eosinophils % (A) 2.4 %; HCT 40.6 % (37.2-46.3); HGB 12.9 g/dL (12.0-15.0); Lymphocytes # (A) 2.15 X 10*3/uL (0.90-5.00); Lymphocytes % (A) 25.3 %; MCH 27.4 pg (27.0-32.0); MCHC 31.8 g/dL (32.0-37.0); MCV 86.2 FL (80.0-97.0); Mean Platelet Volume 10.6 FL (9.5-12.2); Monocytes # (A) 0.58 X 10*3/uL (0.20-1.00); Monocytes % (A) 6.8 %; NRBC Per 100 WBC 0 X 10*3/uL (0.00-0.01); Neutrophils # (A) 5.46 X 10*3/uL (1.80-7.70); Neutrophils % (A) 64.3 %; Platelet Count 342 X 10*3/uL (140-440); RBC 4.71 X 10*6/uL (4.10-5.20); RDW 13.2 % (11.5-14.5); WBC 8.49 X 10*3/uL (4.50-10.00)
[2024-12-06 15:17] LABS: ALT 15 U/L (8-44); AST 20 U/L (13-35); Albumin 4.1 g/dL (3.8-4.9); Albumin/Globulin Ratio 1.71 Ratio (1.60-3.17); Alkaline Phosphatase 91 U/L (41-126); BUN/Creat Ratio 15.33 Ratio (12.00-20.00); Blood Urea Nitrogen 13.8 mg/dL (9.0-27.0); Calcium 9.1 mg/dL (8.7-10.3); Carbon Dioxide 24.8 mmol/L (21.6-31.8); Chloride 104 mmol/L (96-109); Globulin 2.4 g/dL (1.6-3.3); Glucose 85 mg/dL (70-110); Potassium 3.6 mmol/L (3.5-5.5); Sodium 138 mmol/L (135-145); Total Bilirubin 0.4 mg/dL (0.3-1.2); Total Protein 6.5 g/dL (6.2-8.2)
== END | disposition home or self-care (01) ==
LOC: LABWHC1 09:13
PROVIDERS: ATTEND Internal Medicine Gastroenterology
DX: Z86.19 Personal history of other infectious and parasitic diseases (principal)
CPT/HCPCS: 36415; 80053; 85025; 87522